=== PATIENT | male | born 1990 | race Caucasian/White ===

== ENCOUNTER 2021-05-03 17:21 | Emergency (ER) | payer OTHER, MEDICARE | END 2021-05-03 19:01 | disposition home or self-care (01) | LOC: ER1 17:21 | DX: S39.012A Strain of muscle, fascia and tendon of lower back, initial encounter (principal); F17.200 Nicotine dependence, unspecified, uncomplicated; V49.40XA Driver injured in collision with unspecified motor vehicles in traffic accident, initial encounter; W22.10XA Striking against or struck by unspecified automobile airbag, initial encounter; Y92.410 Unspecified street and highway as the place of occurrence of the external cause | CPT/HCPCS: 72128; 72131; 99284 ==

== ENCOUNTER 2021-12-15 19:16 | Emergency (ER) | payer OTHER | END 2021-12-15 20:47 | disposition home or self-care (01) | LOC: ER1 19:16 | DX: S92.341A Displaced fracture of fourth metatarsal bone, right foot, initial encounter for closed fracture (principal); F17.200 Nicotine dependence, unspecified, uncomplicated; W22.01XA Walked into wall, initial encounter; Z23 Encounter for immunization | CPT/HCPCS: 73130; 90471; 90715; 99283 ==

== ENCOUNTER 2022-01-14 23:41 | Emergency (ER) | payer MEDICARE, OTHER ==
[2022-01-15 00:55] LABS: HEMOGLOBIN 18.2 gm/dl (14.0-17.5); RED BLOOD COUNT 5.3 M/UL (4.20-5.50); WHITE BLOOD COUNT 9.5 K/UL (4.5-11.0)
[2022-01-15 01:15] LABS: BUN/CREATININE RATIO 11 (0-10)
[2022-01-15] MEDS ORDERED: DEPAKOTE500 MG PO (01:39)
== END 2022-01-15 03:01 | disposition home or self-care (01) ==
LOC: ER1 23:41
PROVIDERS: Emergency Medicine
DX: R56.9 Unspecified convulsions (principal)
CPT/HCPCS: 80048; 85025; 93005; 99284